=== PATIENT | male | born 1995 | race African-American/Black ===

== ENCOUNTER 2021-11-07 12:21 | Emergency (ER) | payer SELFPAY ==
[~2021-11-07] VITALS: Ht 185.4 cm; Wt 70.0 kg
[2021-11-07 12:41] VITALS: BP 139/71
[2021-11-07] MEDS: IBUPROFEN 600MG TABLET PO STA (12:47)
[2021-11-07] MEDS ORDERED: CYCL5TAB PO (13:53)
[2021-11-07] MEDS ORDERED: IBUP-2029 PO (13:53)
== END 2021-11-07 14:17 | disposition home or self-care (01) ==
LOC: ER 12:21
DX: S16.1XXA Strain of muscle, fascia and tendon at neck level, initial encounter (principal); M25.512 Pain in left shoulder; M25.552 Pain in left hip; V49.40XA Driver injured in collision with unspecified motor vehicles in traffic accident, initial encounter; Y93.89 Activity, other specified; Y92.89 Other specified places as the place of occurrence of the external cause; Y99.8 Other external cause status
CPT/HCPCS: 72100; 73030; 73502; 99284